=== PATIENT | female | born 1950 | race Caucasian/White ===

== ENCOUNTER → 2023-12-30 13:48 | Outpatient (REF) | payer MEDICARE, OTHER, SELFPAY | LOC: RAD 13:48 | PROVIDERS: ATTENDING PHYSICIAN Surgery Vascular Surgery; FAMILY PHYSICIAN Internal Medicine | DX: I73.9 Peripheral vascular disease, unspecified (principal) | CPT/HCPCS: 93922 ==

== ENCOUNTER → 2024-12-21 13:06 | Outpatient (REF) | payer MEDICARE, OTHER, SELFPAY | LOC: RAD 13:06 | PROVIDERS: ATTENDING PHYSICIAN Surgery Vascular Surgery; FAMILY PHYSICIAN Internal Medicine | DX: I73.9 Peripheral vascular disease, unspecified (principal) | CPT/HCPCS: 93922; 93925 ==